=== PATIENT | female | born 1950 | race Caucasian/White ===

== ENCOUNTER 2020-01-17 14:49 | Outpatient (CLI) | payer MEDICARE, OTHER, SELFPAY ==
--- NOTE | 2020-01-17 15:06 | CT_ITS ---
WS: [id number] CT CHEST TECHNIQUE: Noncontrast CT of the chest with coronal and sagittal reformatted images. CLINICAL INFORMATION: SOLITARY PULMONARY NODULE COMPARISON: CT chest December 21, 2018 DLP: 949.[address] scans at [facility] use at least one of these dose optimization techniques: automat ed exposure control; mA and/or kV adjustment per patient size (includes targeted exams where dose is matched to clinical indication); or iterative reconstruction. FINDINGS: Again seen is the noncalcified pulmonary nodule right lower lobe. This appears slightly more dense to day measures approximately 7.1 mm compared to 6.5 mm previous. This is slightly increased in size. Re commend 6 month follow-up. No other suspicious abnormalities. No mediastinal or hilar lymphadenopathy . Vascular calcification including coronary. Left hilar nodes. Both adrenal glands are normal. Splenic granulomas. Stable renal cyst upper pole left kidney. No axillary lymphadenopathy. Hypertrophic henry es thoracic spine. CT/CT chest wo con [id number] IMPRESSION: 1. Slight increase in size and density right lower lobe pulmonary nodule measu ring 7.1 mm today. RECOMMEND 6 MONTH FOLLOW-UP. 2. No other significant interval changes. 3. No mediastinal or hilar lymphadenopathy 4. Stable 12 mm renal cyst upper pole left kidney.
--- NOTE | 2020-01-17 15:07 | XR_ITS ---
WS: [id number] SCREENING DEXA SCAN [facility] CLINICAL INFORMATION: ASYMPTOMATIC MENOPAUSAL STATE COMPARISON: None. FINDINGS: The L1-L4 bone mineral density measures 1.608 g/cm2. This corresponds to a T score score of 3.6 and Z score of 4.4. Left femoral neck bone mineral density measures 1.272 g/cm2. This corresponds to a T score of 2.1 and Z score of 2.9. Right femoral neck bone mineral density measures 1.245 g/cm2. This corresponds to a T score 1.9of and Z score of 2.7. Mean femoral neck bone mineral density measures 1.259 g/cm2. This corresponds to a T score of 2.0 and Z score of 2.8. XR/XR DEXA axial skeleton* [id number] IMPRESSION: Normal bone mineralization. Patient's FRAX calculated 10 year probability for major osteoporotic fracture i s 5.5 % and osteoporotic hip fracture is 0.1%.
== END 2020-01-17 14:50 | disposition home or self-care (01) ==
LOC: RADWPI 14:51
PROVIDERS: Family Provider Nurse Practitioner Family; PCP Nurse Practitioner Family; Visit Provider Nurse Practitioner Family
DX: R91.1 Solitary pulmonary nodule (principal); Z78.0 Asymptomatic menopausal state; Q61.01 Congenital single renal cyst
CPT/HCPCS: 71250; 77080

== ENCOUNTER 2020-07-06 08:32 | Outpatient (CLI) | payer MEDICARE, OTHER, SELFPAY ==
--- NOTE | 2020-07-06 08:40 | CT_ITS ---
WS: [id number] CT CHEST WITHOUT INTRAVENOUS CONTRAST HISTORY: SOLITARY PULMONARY NODULE TECHNIQUE: Contiguous 5 mm axial imaging performed on the thorax. Coronal and sagittal reformats are submitted. All CT scans at [facility] use at least one of these dose optimization techniq ues: automated exposure control; mA and/or kV adjustment per patient size (includes targeted exams wh ere dose is matched to clinical indication); or iterative reconstruction. CONTRAST: None DLP: 954.09 mGycm COMPARISON: 01/17/2020 and 12/21/2018, CT abdomen 06/11/2018 Lungs and central airway: 6 mm noncalcified round nodule in the periphery RIGHT lower lobe is stable since 06/11/2018. There is an additional 3 mm nodule in the RIGHT upper lobe which is stable. No enlar ging or new pulmonary nodules. No pneumonia. Pleura: Normal. No pleural effusion. Heart and pericardium: Normal size heart with no pericardial effusion. Mediastinum and davion: No mediastinum or hilar adenopathy. Vessels: Mild atherosclerosis aorta with no aneurysm. Normal size pulmonary artery. Chest wall and lower neck: No soft tissue masses. Upper abdomen: Moderate hepatomegaly and diffuse hepatic steatosis with no bile duct dilatation. Sple jono and hepatic granulomatous. Low-attenuation lesion in the upper pole LEFT kidney is again identifi ed and no interval change. No adrenal mass. Osseous structures: Moderate thoracic spondylosis. CT/CT chest wo con [id number] IMPRESSION: 1. Long-term stability RIGHT lower lobe 6 mm noncalcified pulmonary nodule. No additional follow-up necessary. 2. Mild atherosclerosis aorta. 3. Hepatic steatosis and hepatomegaly.
== END 2020-07-06 08:33 | disposition home or self-care (01) ==
LOC: RADWPI 08:39
PROVIDERS: PCP Nurse Practitioner Family; Visit Provider Nurse Practitioner Family
DX: R91.1 Solitary pulmonary nodule (principal); I70.0 Atherosclerosis of aorta; K76.0 Fatty (change of) liver, not elsewhere classified; R16.0 Hepatomegaly, not elsewhere classified
CPT/HCPCS: 71250

== ENCOUNTER 2021-03-05 10:56 | Outpatient (CLI) | payer MEDICARE, OTHER, SELFPAY ==
--- NOTE | 2021-03-05 11:02 | XR_ITS ---
WS: [id number] Thoracic spine, AP and lateral views, 03/05/2021 Clinical Data: TYPE 2 DIABETES MELLITUS, CHRONIC KIDNEY DISEASE Comparison: None. Findings: No compression fractures are seen. The disc heights are normal. There is moderate osteoarthritic spurring of all the thoracic vertebral bodies. The paravertebral reg ions are normal. XR/XR thoracic spine 2V [id number] Impression: Moderate osteoarthritis of the thoracic vertebral bodies.
== END 2021-03-05 10:57 | disposition home or self-care (01) ==
PROVIDERS: PCP Nurse Practitioner Family; Visit Provider Nurse Practitioner Family
DX: I10 Essential (primary) hypertension (principal); E11.65 Type 2 diabetes mellitus with hyperglycemia; E11.22 Type 2 diabetes mellitus with diabetic chronic kidney disease; N18.30 Chronic kidney disease, stage 3 unspecified; M47.814 Spondylosis without myelopathy or radiculopathy, thoracic region
CPT/HCPCS: 72070

== ENCOUNTER 2021-06-28 14:44 | Outpatient (CLI) | payer MEDICARE, OTHER, SELFPAY ==
--- NOTE | 2021-06-28 14:49 | MM_ITS ---
WS: [id number] BILATERAL SCREENING DIGITAL MAMMOGRAM WITH CAD HISTORY: SCREENING COMPARISON: 05/30/2019 and 10/31/2017 Bilateral CC and MLO views submitted. Computer aided detection analyzed. Breast composition: There are scattered areas of fibroglandular density. No suspicious masses, microc alcifications or architectural distortion. Benign calcifications in each breast. MM/[place] [id number] IMPRESSION: BI-RADS: 2-Benign FOLLOW UP: 1 Year Follow-up
== END 2021-06-28 14:45 | disposition home or self-care (01) ==
PROVIDERS: PCP Nurse Practitioner Family; Visit Provider Nurse Practitioner Family
DX: Z12.31 Encounter for screening mammogram for malignant neoplasm of breast (principal)
CPT/HCPCS: 77067

== ENCOUNTER 2021-11-04 07:44 | Outpatient (CLI) | payer MEDICARE, OTHER, SELFPAY ==
--- NOTE | 2021-11-04 07:57 | US_ITS ---
WS: [id number] RIGHT UPPER QUADRANT ULTRASOUND HISTORY: GENERALIZED ABD PAIN COMPARISON: None available. Liver: 17.8 cm in length. Liver is top normal size. Very mild coarse echotexture. No mass or bile murphy t dilatation. Portal Vein: Normal hepatopetal flow with monophasic waveform. Gallbladder: Status post cholecystectomy. CBD: 0.6 cm, long portion of common bile duct is identified but there is no stone or dilatation. Pancreas: Normal size and echogenicity. Right kidney: 10.4 cm in length. Normal size and echogenicity. No hydronephrosis or mass. Aorta and IVC: Unremarkable abdominal aorta and IVC. No ascites. US/US abdomen limited [id number] IMPRESSION: 1. Prior cholecystectomy. 2. Very minimal coarse echotexture throughout the liver. May represent early h epatocellular disease. At this time portal triads are still apparent and there is no mass or bile duct dilatation. Surface of the liver is normal.
--- NOTE | 2021-11-04 07:57 | CT_ITS ---
WS: [id number] CT CHEST WITHOUT INTRAVENOUS CONTRAST HISTORY: PERSONAL HX OF NICOTINE DEPENDENCE/SOLITARY PULMONARY NODULE TECHNIQUE: Contiguous 5 mm axial imaging performed on the thorax. Coronal and sagittal reformats are submitted. All CT scans at [employer] use at least one of these dose optimization techniques: automated exposure control; mA and/or kV adjustment per patient size (includes targeted exams where dose is matched to clinical indication); or iterative reconstruction. CONTRAST: None DLP: 756.41 mGy.cm COMPARISON: 07/06/2020, 06/11/2018 and 12/21/2018 Lungs and central airway: Previously described 6 mm RIGHT lower lobe pulmonary nodule is reidentified . There is an additional stable 2 mm nodule in the RIGHT lower lobe. Pleura: Normal. No pleural effusion. Heart and pericardium: Normal size heart with no pericardial effusion. Mediastinum and davion: Calcified LEFT hilar lymph nodes. Vessels: Mild atherosclerosis aorta. No aneurysm. Normal size pulmonary artery. Chest wall and lower neck: No soft tissue masses. Upper abdomen: Mildly enlarged liver. Splenic and hepatic granulomata. No hiatal hernia. Adrenal glan ds are normal. Visualized pancreas is normal. Osseous structures: Moderate thoracic spondylosis. CT/CT chest wo con [id number] IMPRESSION: 1. Long-term stability of RIGHT lower lobe pulmonary nodules. No additional fo llow-up necessary. 2. Mild atherosclerosis aorta.
== END 2021-11-04 07:45 | disposition home or self-care (01) ==
LOC: RAD 07:48
PROVIDERS: PCP Nurse Practitioner Family; Visit Provider Nurse Practitioner Family
DX: R79.89 Other specified abnormal findings of blood chemistry (principal); R10.84 Generalized abdominal pain; R91.1 Solitary pulmonary nodule; Z87.891 Personal history of nicotine dependence; I70.0 Atherosclerosis of aorta; Z90.49 Acquired absence of other specified parts of digestive tract
CPT/HCPCS: 71250; 76705

== ENCOUNTER → 2022-05-03 10:03 | Outpatient (BNVA) | payer MEDICARE, OTHER, SELFPAY | PROVIDERS: PCP Nurse Practitioner Family; Visit Provider Podiatrist Foot & Ankle Surgery | DX: E11.21 Type 2 diabetes mellitus with diabetic nephropathy (principal) | CPT/HCPCS: 99203; 99204 ==

== ENCOUNTER 2022-06-09 10:44 | Emergency (ER) | payer MEDICARE, OTHER, SELFPAY ==
[2022-06-09 11:20] VITALS: BP 150/79; PULSE 81; RESP 16; TEMP 36.6; O2SAT 95; BMI 31.6
--- NOTE | 2022-06-09 14:00 | ECG_ITS ---
[facility] Test Date: 2022-06-09 Pat Name: Nel Marie Department: Room: Gender: Female [employer]: : 1950 Requested By: Naeem Mera Order Number: [id number] Harmon MD: Odilia Armijo M.D. Measurements Intervals [place] Rate: 75 P: 80 ME: 192 QRS: -1 QRSD: 88 T: 57 QT: 405 QTc: 453 Interpretive Statements SINUS RHYTHM Compared to ECG 04/05/2017 12:24:59 First degree AV block no longer present Electronically Signed On 06-09-2022 17:07:51 CDT by Odilia Armijo M.D. [id number]
[2022-06-09 14:28] LABS: Basophils # 0.1 10^3/uL (0.0-0.1); Basophils % 0.9 %; Eosinophils # 0.4 10^3/uL (0.0-0.8); Eosinophils % 3.2 %; Hematocrit 43.8 % (37.0-47.0); Hemoglobin 14.3 g/dL (11.5-15.3); Lymphocytes # 1.9 10^3/uL (0.8-4.8); Lymphocytes % 16.4 %; Mean Corpuscular HGB Conc 32.6 g/dL (30.0-36.0); Mean Corpuscular Hemoglobin 29.1 pg (28.0-34.0); Mean Corpuscular Volume 89.2 fl (81-99); Mean Platelet Volume 9.3 fL (7.4-10.4); Monocytes # 0.6 10^3/uL (0.2-0.9); Monocytes % 4.8 %; Neutrophils # 8.63 10^3/uL (1.8-7.7); Neutrophils % 74.4 %; Nucleated Red Blood Cells % 0 %; Platelet Count 388 10^3/cmm (130-400); Red Blood Count 4.91 10^6/uL (4.1-5.3); Red Cell Distribution Width 13.3 % (12.1-15.1); White Blood Count 11.6 10^3/uL (4.0-10.0)
--- NOTE | 2022-06-09 14:43 | PC.NURSE ---
pt reprots LUQ abdominal pain for 2 months. Has a f/u appointment with PCP on 06/22/22. was told it was shingles without a rash, but pt does not agree with that due to never having chicken pox. Pt reports intermittent diarrhea. denies nausea, vomiting, fevers, . pt alert and oriented, skin pink/warm/dry. lung sounds clear bilat. bowel sounds present. visitor at bedside. call light within reach.
[2022-06-09 14:45] LABS: Alanine Aminotransferase 24 U/L (0-33); Albumin Level 4.3 g/dL (3.5-5.2); Alkaline Phosphatase 111 U/L (35-105); Anion Gap 17.6 (5-19); Aspartate Amino Transferase 16 U/L (0-32); Blood Urea Nitrogen 12 mg/dL (8-23); Carbon Dioxide 27 mmol/L (22-29); Chloride 95 mmol/L (98-107); Globulin 3.5 g/dL (1.3-4.6); Glucose 110 mg/dL (65-115); Lipase 20 U/L (13-60); Osmolality Calculated 282 mOsm/kg (285-295); Potassium 3.6 mmol/L (3.5-5.1); Sodium 136 mmol/L (136-145); Total Bilirubin 0.6 mg/dL (0.15-1.2); Total Protein 7.8 g/dL (6.6-8.7)
--- NOTE | 2022-06-09 14:46 | W.ED.ABDPA2 ---
HPI - Abdominal Pain General: Chief Complaint: Abdominal Pain Stated Complaint: Abd pains Time Seen by Provider: 06/09/22 14:19 Source: patient Mode of arrival: ambulatory History of Present Illness: 71-year-old female presents emergency room planing abdominal pain left upper quadrant for the last 2 months. She had seen a primary care provider and was told she had internal shingles . She states she has had persistent discomfort there was no further testing. She denies any fever sweats chills no nausea vomiting or diarrhea. No dysuria urgency or frequency no hematuria no vomiting or diarrhea. Patient previously has had appendectomy cholecystectomy and multiple gynecologic procedures. She has not had any difficulty with bowel or bladder she is not any difficulty with p.o. intake. MD elicited complaint: abdominal pain Onset (ago): month(s) (2) Pain Consistency: intermittent Location: LUQ Severity: moderate Quality: cramping Radiation: none Migration to: no migration Exacerbating factors: nothing Relieving factors: nothing Associated Symptoms: Reports GI cramping; Denies anorexia, belching, bloating, change in bowel habits, change in stool character, chills, coffee ground emesis, constipation, diarrhea, dyspepsia, dysuria, excessive flatus, fever(s), heartburn, hematochezia, hematuria, hematemesis, fecal incontinence, loose stools, melena, nausea, poor appetite, syncope and vomiting Review of Systems Const: Denies: fever(s), chills, fatigue or malaise ENMT: Denies: throat pain, ear or mastoid pain, nasal discharge or nasal congestion Card: Denies: chest pain, palpitations or syncope Resp: Denies: dyspnea, productive cough or non-productive cough GI: Reports: GI cramping; Denies: abdominal pain, nausea, vomiting, hematemesis, coffee ground emesis, heartburn, diarrhea, constipation, bloating, belching, excessive flatus, fecal incontinence, change in bowel habits, change in stool character, hematochezia or melena : Denies: flank pain, difficulty voiding, dysuria, urinary frequency, urinary urgency or hematuria Skin/Breast: Denies: rash or pruritus PFSH ED PFSH: Medical History Combined hyperlipidemia Glaucoma (increased eye pressure) Hypertension Low back pain Renal cyst, left Type 2 diabetes mellitus with diabetic nephropathy Surgical History H/O: hysterectomy History of appendectomy History of cholecystectomy Hx of exploratory laparotomy x5 Family History Other CAD (coronary artery disease) Cancer Diabetes Hyperlipidemia Hypertension Lung disease Social History Smoking and tobacco status: former smoker Quit status (tobacco): has quit using tobacco Year quit tobacco: 30 years ago Alcohol intake: never Physical Exam Const: GENERAL APPEARANCE: cooperative and comfortable ORIENTATION/CONSCIOUSNESS: Yes awake, Yes oriented to person, Yes oriented to place and Yes oriented to time HENMT: COMMON NORMALS: normocephalic, atraumatic and hearing grossly normal bilaterally HEAD & SCALP: normocephalic and atraumatic Chest: OTHER: Tenderness palpating along with costochondral angle and left lower ribs Resp: COMMON NORMALS: normal respiratory effort, No retractions, No use of accessory muscles and clear to auscultation bilaterally AUSCULTATION: clear to auscultation bilaterally Cardio: COMMON NORMALS: regular rate, regular rhythm and No murmurs present (Cardio) RATE: regular rate RHYTHM: regular rhythm GI: COMMON NORMALS: Soft to palpation and No hepatosplenomegaly present AUSCULTATION: Yes normoactive bowel sounds PALPATION: Yes Soft to palpation, No Tenderness to palpation present (GI), No Guarding due to palpation present (GI) and Yes No hepatosplenomegaly present Extremity: COMMON NORMALS: normal to inspection, capillary refill normal, no clubbing, cyanosis or edema, no calf tenderness and no pedal edema Neuro: SENSORIUM/ORIENTATION: Yes oriented to person, Yes oriented to place and Yes oriented to time Skin: COMMON NORMALS: no rashes or lesions noted GENERAL SKIN EXAM: no rashes or lesions noted Course Vital Signs: Vital signs: Vital Signs Temperature 97.8 F 06/09/22 11:20 Pulse Rate 83 06/09/22 17:56 Respiratory Rate 16 06/09/22 11:20 Blood Pressure 140/86 06/09/22 17:56 Pulse Oximetry 96 06/09/22 17:56 Oxygen Delivery Me thod 06/09/22 11:20 MDM - Abdominal Pain Medical Decision Making Labs, EKG And imaging reviewed. There is no sign of pneumonia congestive heart failure. Clinically there is no evidence of pulmonary embolism.No evidence of acute fracture. Treat for soft tissue injury follow-up as needed Medical Records I reviewed the patient's medical records. Lab Data I reviewed the patient's lab results. : 06/09/22 14:20 06/09/22 14:20 Labs/Radiology: Radiology Impressions Chest X-Ray 06/09/22 14:57 IMPRESSION: No acute findings. Ribs X-Ray 06/09/22 15:25 IMPRESSION: Moderate acromioclavicular joint and glenohumeral joint osteoarthritis. Laboratory Results WBC 11.6 10^3/uL (4.0-10.0) H 06/09/22 14:20 RBC 4.91 10^6/uL (4.1-5.3) 06/09/22 14:20 Hgb 14.3 g/dL (11.5-15.3) 06/09/22 14:20 Hct 43.8 % (37.0-47.0) 06/09/22 14:20 MCV 89.2 fl (81-99) 06/09/22 14:20 MCH 29.1 pg (28.0-34.0) 06/09/22 14:20 MCHC 32.6 g/dL (30.0-36.0) 06/09/22 14:20 RDW 13.3 % (12.1-15.1) 06/09/22 14:20 Plt Count 388 10^3/cmm (130-400) 06/09/22 14:20 MPV 9.3 fL (7.4-10.4) 06/09/22 14:20 Neut % (Auto) 74.4 % 06/09/22 14:20 Lymph % (Auto) 16.4 % 06/09/22 14:20 Reeves % (Auto) 4.8 % 06/09/22 14:20 Eos % (Auto) 3.2 % 06/09/22 14:20 Baso % (Auto) 0.9 % 06/09/22 14:20 Neut # (Auto) 8.63 10^3/uL (1.8-7.7) H 06/09/22 14:20 Lymph # (Auto) 1.9 10^3/uL (0.8-4.8) 06/09/22 14:20 Reeves # (Auto) 0.6 10^3/uL (0.2-0.9) 06/09/22 14:20 Eos # (Auto) 0.4 10^3/uL (0.0-0.8) 06/09/22 14:20 Baso # (Auto) 0.1 10^3/uL (0.0-0.1) 06/09/22 14:20 Nucleated RBC % (auto) 0 % 06/09/22 14:20 Nucleated RBCs # 0.0 /100WBC 06/09/22 14:20 Sodium 136 mmol/L (136-145) 06/09/22 14:20 Potassium 3.6 mmol/L (3.5-5.1) 06/09/22 14:20 Chloride 95 mmol/L (98-107) L 06/09/22 14:20 Carbon Dioxide 27 mmol/L (22-29) 06/09/22 14:20 Anion Gap 17.6 (5-19) 06/09/22 14:20 BUN 12 mg/dL (8-23) 06/09/22 14:20 Creatinine 0.8 mg/dL (0.5-0.9) 06/09/22 14:20 GFR Calculation Not Reportable 06/09/22 14:20 Glucose 110 mg/dL (65-115) 06/09/22 14:20 Calculated Osmolality 282 mOsm/kg (285-295) L 06/09/22 14:20 Calcium 10.0 mg/dL (8.5-10.5) 06/09/22 14:20 Total Bilirubin 0.6 mg/dL (0.15-1.2) 06/09/22 14:20 AST 16 U/L (0-32) 06/09/22 14:20 ALT 24 U/L (0-33) 06/09/22 14:20 Alkaline Phosphatase 111 U/L (35-105) H 06/09/22 14:20 Total Protein 7.8 g/dL (6.6-8.7) 06/09/22 14:20 Albumin 4.3 g/dL (3.5-5.2) 06/09/22 14:20 Globulin 3.5 g/dL (1.3-4.6) 06/09/22 14:20 Lipase 20 U/L (13-60) 06/09/22 14:20 Urine Color Yellow (Yellow) 06/09/22 15:44 Urine Appearance Clear (CLEAR) 06/09/22 15:44 Urine pH 7 (5-7) 06/09/22 15:44 Ur Specific [place] 1.005 (1.005-1.030) 06/09/22 15:44 Urine Protein Neg (Negative) 06/09/22 15:44 Urine Glucose (UA) Norm (Normal) 06/09/22 15:44 Urine Ketones Negative (Negative) 06/09/22 15:44 Urine Blood Neg (Negative) 06/09/22 15:44 Urine Nitrate Negative (Negative) 06/09/22 15:44 Urine Bilirubin Neg (Negative) 06/09/22 15:44 Urine Urobilinogen 1 mg/dL (Negative) H 06/09/22 15:44 Ur Leukocyte Esterase Trace (Negative) H 06/09/22 15:44 Urine RBC None /hpf (0-2) 06/09/22 15:44 Urine WBC None /hpf (0-5) 06/09/22 15:44 Ur Squamous Epith Cells 0-4 /hpf (0-5) H 06/09/22 15:44 Amorphous Sediment Not Reportable 06/09/22 15:44 Urine Bacteria None /hpf (NONE) 06/09/22 15:44 Discharge Plan Discharge Patient Disposition: Home Clinical Impression: Rib pain on left side Condition: Stable Prescriptions: New diclofenac sodium 75 mg tablet,delayed release (DR/EC) 75 mg PO Q12H PRN (Reason: pain) Qty: 20 0RF Discontinued naproxen sodium [Aleve] 220 mg Tablet 440 mg PO Q12H PRN (Reason: Pain) No Action timolol 0.5 % drops 1 drop ophthalmic (eye) BID Travatan Z 0.004 % drops 1 drop ophthalmic (eye) BEDTIME Levemir FlexTouch U-100 Insuln 100 unit/mL (3 mL) insulin pen 20 unit SUBCUT BID Trulicity 4.5 mg/0.5 mL pen injector See Rx Instructions .ROUTE .COMPLEX Rx Instructions: DIRECTED ONCE A WEEK atorvastatin 40 mg tablet 40 mg PO QAM triamterene-hydrochlorothiazid 37.5-25 mg capsule See Rx Instructions .ROUTE .COMPLEX Rx Instructions: TAKE ONE TAB PO ONCE A DAY ONE DAY THEN ALTERNATE AND TAKE 2 TABS DAILY THE NEXT DAY amlodipine 10 mg tablet 10 mg PO QAM ezetimibe 10 mg tablet 10 mg PO QAM Janumet XR 100-1,000 mg tablet, ER multiphase 24 hr 1 tab PO QAM duloxetine 60 mg capsule, delayed rel sprinkle 60 mg PO QAM Discharge Orders: Discharge ED (Routine); Ordered 06/09/22 Ordered By: Lj Horne Referrals: Chelsi Herrera, NATURALIST [Primary Care Provider] - Discharge Diet: Usual diet Discharge Activity: Resume usual activity Patient Instructions: Opioid Safety, Pain Management Coding Level of Care Code ED Process Artist for Nasir Wallace Exam Detailed
--- NOTE | 2022-06-09 14:57 | XRR_ITS ---
PROCEDURE INFORMATION: Exam: XR Chest Exam date and time: 06/09/2022 3:00 PM Age: 71 years old Clinical indication: Cough and dyspnea; Additional info: Dyspnea/cough TECHNIQUE: Imaging protocol: Radiologic exam of the chest. Views: 1 view. COMPARISON: CT chest con [id number] 11/04/2021 8:29 AM FINDINGS: Lungs: Unremarkable. No consolidation. Pleural spaces: Unremarkable. No pleural effusion. No pneumothorax. Heart/Mediastinum: Unremarkable. No cardiomegaly. Bones/joints: Unremarkable. XR/XR chest 1V portable [id number] IMPRESSION: No acute findings.
--- NOTE | 2022-06-09 15:25 | XRR_ITS ---
PROCEDURE INFORMATION: Exam: XR Left Ribs Exam date and time: 06/09/2022 3:35 PM Age: 71 years old Clinical indication: Other: Lt sided; Patient HX: Abdominal pain left upper quadrant for the last 2 months TECHNIQUE: Imaging protocol: Radiologic exam of the Left ribs. Views: 2 views. COMPARISON: CR XR chest 1V portable [id number] 06/09/2022 3:00 PM FINDINGS: Bones/joints: Moderate acromioclavicular joint and glenohumeral joint osteoarthritis. Soft tissues: Normal. XR/XR ribs LT 2V* [id number] IMPRESSION: Moderate acromioclavicular joint and glenohumeral joint osteoarthritis.
[2022-06-09 16:52] LABS: Specific Gravity, Urine 1.005 (1.005-1.030); Urine Appearance Clear (CLEAR); Urine Color Yellow (Yellow); pH Urine 7 (5-7)
[2022-06-09 16:53] LABS: Add Urine Culture? No; Add Urine Microscopic? YES; Bilirubin Urine Neg (Negative); Blood Urine Neg (Negative); Glucose Urine UA Norm (Normal); Ketones Urine Negative (Negative); Leukocyte Esterase Urine Trace (Negative); Nitrate Urine Negative (Negative); Protein Urine Neg (Negative); Squamous Epithelial Cell Urine 0-4 /hpf (0-5); Urobilinogen Urine 1 mg/dL (Negative)
[2022-06-09 17:56] VITALS: BP 140/86; PULSE 83; O2SAT 96
== END 2022-06-09 17:57 | disposition home or self-care (01) ==
PROVIDERS: Emergency Medicine; Emergency Provider Family Medicine; PCP Nurse Practitioner Family
DX: R07.81 Pleurodynia (principal); I10 Essential (primary) hypertension; E11.21 Type 2 diabetes mellitus with diabetic nephropathy; E78.2 Mixed hyperlipidemia; Z79.4 Long term (current) use of insulin
CPT/HCPCS: 36415; 71045; 71100; 80053; 81001; 83690; 85025; 93005; 99285

== ENCOUNTER → 2023-02-22 12:45 | Outpatient (BNVA) | payer MEDICARE, SELFPAY | PROVIDERS: PCP Nurse Practitioner Family; Referring Provider Nurse Practitioner Family; Visit Provider Specialist | DX: M54.50 Low back pain, unspecified (principal); G89.29 Other chronic pain; E11.21 Type 2 diabetes mellitus with diabetic nephropathy; Z79.4 Long term (current) use of insulin | CPT/HCPCS: 99204 ==

== ENCOUNTER → 2023-04-11 10:13 | Outpatient (BNVA) | payer MEDICARE, SELFPAY | PROVIDERS: PCP Nurse Practitioner Family; Visit Provider Podiatrist Foot & Ankle Surgery | DX: E11.8 Type 2 diabetes mellitus with unspecified complications (principal); E11.21 Type 2 diabetes mellitus with diabetic nephropathy; Z79.4 Long term (current) use of insulin | CPT/HCPCS: 99213 ==

== ENCOUNTER → 2023-07-31 10:46 | Outpatient (BNVA) | payer OTHER, SELFPAY | PROVIDERS: PCP Nurse Practitioner Family; Visit Provider Internal Medicine | DX: E11.21 Type 2 diabetes mellitus with diabetic nephropathy (principal); R53.83 Other fatigue; R41.89 Other symptoms and signs involving cognitive functions and awareness; R70.0 Elevated erythrocyte sedimentation rate | CPT/HCPCS: 36415; 80053; 81001; 82550; 83516; 85025; 85651; 86140; 86160; 86162; 86200; 86235; 86255; 86376; 86431; 86704; 86803; 87340; 99204 ==

== ENCOUNTER → 2023-09-19 08:54 | Outpatient (BNVA) | payer MEDICARE, SELFPAY | PROVIDERS: PCP Nurse Practitioner Family; Visit Provider Internal Medicine | DX: R76.8 Other specified abnormal immunological findings in serum (principal); R53.83 Other fatigue; R41.89 Other symptoms and signs involving cognitive functions and awareness; R70.0 Elevated erythrocyte sedimentation rate; E11.21 Type 2 diabetes mellitus with diabetic nephropathy; M79.89 Other specified soft tissue disorders; N18.9 Chronic kidney disease, unspecified; R82.90 Unspecified abnormal findings in urine | CPT/HCPCS: 99214 ==

== ENCOUNTER → 2023-11-08 09:02 | Outpatient (BNVA) | payer MEDICARE, SELFPAY | PROVIDERS: PCP Nurse Practitioner Family; Referring Provider Internal Medicine; Visit Provider Internal Medicine | DX: E11.21 Type 2 diabetes mellitus with diabetic nephropathy (principal); E78.5 Hyperlipidemia, unspecified; E11.22 Type 2 diabetes mellitus with diabetic chronic kidney disease; N18.30 Chronic kidney disease, stage 3 unspecified; Z79.84 Long term (current) use of oral hypoglycemic drugs; Z79.85 Long-term (current) use of injectable non-insulin antidiabetic drugs | CPT/HCPCS: 36415; 80053; 80061; 82044; 83036; 99204 ==

== ENCOUNTER → 2024-02-14 14:53 | Outpatient (BNVA) | payer MEDICARE, SELFPAY | PROVIDERS: PCP Nurse Practitioner Family; Visit Provider Internal Medicine Rheumatology | DX: Z79.899 Other long term (current) drug therapy (principal); E11.21 Type 2 diabetes mellitus with diabetic nephropathy; M19.041 Primary osteoarthritis, right hand; M06.041 Rheumatoid arthritis without rheumatoid factor, right hand; M06.042 Rheumatoid arthritis without rheumatoid factor, left hand | CPT/HCPCS: 73130; 73630; 99214 ==

== ENCOUNTER → 2024-03-06 14:30 | Outpatient (BNVA) | payer MEDICARE, SELFPAY | PROVIDERS: PCP Nurse Practitioner Family; Visit Provider Specialist | DX: G47.9 Sleep disorder, unspecified (principal); R29.90 Unspecified symptoms and signs involving the nervous system; G89.29 Other chronic pain; E11.21 Type 2 diabetes mellitus with diabetic nephropathy; B02.29 Other postherpetic nervous system involvement; M79.7 Fibromyalgia; G43.711 Chronic migraine without aura, intractable, with status migrainosus; R41.89 Other symptoms and signs involving cognitive functions and awareness; E66.9 Obesity, unspecified; Z68.32 Body mass index [BMI] 32.0-32.9, adult | CPT/HCPCS: 99214; 99215 ==

== ENCOUNTER 2024-03-18 10:14 | Outpatient (CLI) | payer MEDICARE, SELFPAY ==
[2024-03-18 10:46] LABS: Basophils # 0.2 10^3/uL (0.0-0.1); Basophils % 1.4 %; Eosinophils # 0.4 10^3/uL (0.0-0.8); Eosinophils % 3.6 %; Hematocrit 43.2 % (36-47); Lymphocytes % 18.6 %; Mean Corpuscular HGB Conc 33.1 g/dL (30-55); Mean Corpuscular Hemoglobin 29.9 pg (27-33); Mean Corpuscular Volume 90.4 fl (85-98); Mean Platelet Volume 9.9 fL (7.4-10.4); Monocytes # 0.6 10^3/uL (0.2-0.9); Monocytes % 5.3 %; Neutrophils # 7.71 10^3/uL (1.8-7.7); Neutrophils % 70.8 %; Nucleated Red Blood Cells % 0 %; Platelet Count 388 10^3/cmm (157-399); Red Blood Count 4.78 10^6/uL (3.85-5.65); Red Cell Distribution Width 13.2 % (12.1-15.1); White Blood Count 10.88 10^3/uL (3.29-11.43)
[2024-03-18 11:27] LABS: 25 Hydroxy Vitamin D 21 ng/mL (30-100); Alanine Aminotransferase 35 U/L (0-33); Albumin Level 4.1 g/dL (3.5-5.2); Alkaline Phosphatase 99 U/L (35-105); Aspartate Amino Transferase 24 U/L (0-32); C Reactive Protein 7.7 mg/L (0.0-4.9); Globulin 3.5 g/dL (1.3-4.6); Thyroid Stimulating Hormone 2.75 uIU/mL (0.27-4.20); Total Bilirubin 0.2 mg/dL (0.15-1.2); Total Protein 7.6 g/dL (6.6-8.7)
[2024-03-18 11:57] LABS: Free T4 Free Thyroxine 1.29 ng/dL (0.82-1.77)
[2024-03-20 16:20] LABS: Mutated Citrullinated Vimentin <20 U/mL (<20)
== END 2024-03-18 10:15 | disposition home or self-care (01) ==
LOC: LAB 10:15
PROVIDERS: PCP Family Medicine; Visit Provider Internal Medicine Rheumatology
DX: Z79.899 Other long term (current) drug therapy (principal); M06.9 Rheumatoid arthritis, unspecified; E11.21 Type 2 diabetes mellitus with diabetic nephropathy
CPT/HCPCS: 36415; 80076; 82306; 82565; 83520; 84439; 84443; 85025; 86140

== ENCOUNTER → 2024-04-09 10:31 | Outpatient (BNVA) | payer MEDICARE, SELFPAY | PROVIDERS: PCP Family Medicine; Visit Provider Podiatrist Foot & Ankle Surgery | DX: E11.8 Type 2 diabetes mellitus with unspecified complications (principal); E11.21 Type 2 diabetes mellitus with diabetic nephropathy; Z79.84 Long term (current) use of oral hypoglycemic drugs | CPT/HCPCS: 99213 ==

== ENCOUNTER 2024-04-30 11:43 | Outpatient (CLI) | payer MEDICARE, SELFPAY ==
[2024-04-30 13:01] LABS: Alanine Aminotransferase 33 U/L (0-33); Albumin Level 4.1 g/dL (3.5-5.2); Alkaline Phosphatase 98 U/L (35-105); Blood Urea Nitrogen 27 mg/dL (8-23); Calcium 9.5 mg/dL (8.5-10.5); Carbon Dioxide 22 mmol/L (22-29); Chloride 99 mmol/L (98-107); Chol HDL Ratio 9.29 mg/dL (0.0-4.40); Cholesterol 353 mg/dL (0-200); Globulin 3.6 g/dL (1.3-4.6); Glucose 182 mg/dL (65-115); HDL Cholesterol 38 mg/dL (60-100); Osmolality Calculated 292 mOsm/kg (285-295); Sodium 136 mmol/L (136-145); Total Bilirubin 0.3 mg/dL (0.15-1.2); Total Protein 7.7 g/dL (6.6-8.7); Triglycerides 678 mg/dL (0-150)
[2024-04-30 13:05] LABS: Creatinine Urine, Random 184 mg/dL (28-217); Microalbum Creatinine Ratio Ur 22 mg/dL (0-20); Microalbumin Random Urine 4 ug/dL (0-20)
[2024-04-30 13:06] LABS: Estmated Average Glucose 206; Hemoglobin A1C 8.8 % (4.0-6.0)
[2024-04-30 13:16] LABS: Anion Gap 19.2 (5-19); Aspartate Amino Transferase 27 U/L (0-32); Potassium 4.2 mmol/L (3.5-5.1)
[2024-04-30 14:13] LABS: LDL Cholesterol Direct 230 mg/dL (0-100)
== END 2024-04-30 11:44 | disposition home or self-care (01) ==
LOC: LAB 11:44
PROVIDERS: PCP Family Medicine; Visit Provider Internal Medicine
DX: E11.21 Type 2 diabetes mellitus with diabetic nephropathy (principal); E78.5 Hyperlipidemia, unspecified
CPT/HCPCS: 36415; 80053; 80061; 82044; 83036; 83721

== ENCOUNTER → 2024-05-17 14:16 | Outpatient (BNVA) | payer MEDICARE, SELFPAY | PROVIDERS: PCP Family Medicine; Visit Provider Specialist | DX: G47.9 Sleep disorder, unspecified (principal); G43.711 Chronic migraine without aura, intractable, with status migrainosus; R29.90 Unspecified symptoms and signs involving the nervous system; G89.29 Other chronic pain; E11.21 Type 2 diabetes mellitus with diabetic nephropathy; B02.29 Other postherpetic nervous system involvement; M79.7 Fibromyalgia; R41.89 Other symptoms and signs involving cognitive functions and awareness; E66.9 Obesity, unspecified; Z53.21 Procedure and treatment not carried out due to patient leaving prior to being seen by health care provider; Z68.30 Body mass index [BMI] 30.0-30.9, adult | CPT/HCPCS: G0463 ==

== ENCOUNTER → 2024-06-04 12:37 | Outpatient (BNVA) | payer MEDICARE, SELFPAY | PROVIDERS: PCP Family Medicine; Visit Provider Internal Medicine Rheumatology | DX: M06.041 Rheumatoid arthritis without rheumatoid factor, right hand (principal); M06.042 Rheumatoid arthritis without rheumatoid factor, left hand; Z79.899 Other long term (current) drug therapy; Z71.85 Encounter for immunization safety counseling; R53.83 Other fatigue; M54.50 Low back pain, unspecified; Z11.1 Encounter for screening for respiratory tuberculosis; Z11.59 Encounter for screening for other viral diseases; E11.21 Type 2 diabetes mellitus with diabetic nephropathy; G89.29 Other chronic pain | CPT/HCPCS: 36415; 72040; 72072; 80076; 82550; 83036; 85025; 86140; 99214 ==

== ENCOUNTER → 2024-06-18 14:35 | Outpatient (BNVA) | payer MEDICARE, SELFPAY | PROVIDERS: PCP Family Medicine; Visit Provider Orthopaedic Surgery | DX: M54.50 Low back pain, unspecified (principal); G89.29 Other chronic pain; M54.9 Dorsalgia, unspecified | CPT/HCPCS: 72072; 72110; 99204 ==

== ENCOUNTER 2024-07-18 14:31 | Outpatient (RCR) | payer MEDICARE, SELFPAY | END 2024-08-03 23:59 | disposition home or self-care (01) | LOC: SPT 14:31 | PROVIDERS: Visit Provider Orthopaedic Surgery | DX: M54.50 Low back pain, unspecified (principal); G89.29 Other chronic pain | CPT/HCPCS: 97110; 97161 ==

== ENCOUNTER → 2024-09-30 14:30 | Outpatient (BNVA) | payer MEDICARE, SELFPAY | PROVIDERS: PCP Family Medicine; Visit Provider Internal Medicine Rheumatology | DX: M06.041 Rheumatoid arthritis without rheumatoid factor, right hand (principal); M06.042 Rheumatoid arthritis without rheumatoid factor, left hand; Z79.899 Other long term (current) drug therapy; Z71.85 Encounter for immunization safety counseling | CPT/HCPCS: 36415; 80076; 82565; 82657; 85025; 85651; 86140; 99214 ==

== ENCOUNTER 2024-11-18 13:41 | Outpatient (CLI) | payer MEDICARE, SELFPAY ==
[2024-11-18 14:09] LABS: Basophils # 0.1 10^3/uL (0.0-0.1); Basophils % 1.1 %; Eosinophils # 0.5 10^3/uL (0.0-0.8); Hematocrit 39.9 % (36-47); Lymphocytes # 1.5 10^3/uL (0.8-4.8); Lymphocytes % 16.2 %; Mean Corpuscular HGB Conc 32.1 g/dL (30-55); Mean Corpuscular Hemoglobin 28.6 pg (27-33); Mean Corpuscular Volume 89.3 fl (85-98); Mean Platelet Volume 9.5 fL (7.4-10.4); Monocytes # 0.4 10^3/uL (0.2-0.9); Monocytes % 4.1 %; Neutrophils # 6.58 10^3/uL (1.8-7.7); Neutrophils % 73.3 %; Nucleated Red Blood Cells % 0 %; Platelet Count 330 10^3/cmm (157-399); Red Blood Count 4.47 10^6/uL (3.85-5.65); Red Cell Distribution Width 13.2 % (12.1-15.1); White Blood Count 8.99 10^3/uL (3.29-11.43)
[2024-11-18 14:22] LABS: Erythrocyte Sedimentation Rate 20 mm/hr (0-15)
[2024-11-18 14:31] LABS: Alanine Aminotransferase 8 U/L (0-33); Albumin Level 4.1 g/dL (3.5-5.2); Alkaline Phosphatase 82 U/L (35-105); Aspartate Amino Transferase 12 U/L (0-32); C Reactive Protein 6.8 mg/L (0.0-4.9); Globulin 2.7 g/dL (1.3-4.6); Total Bilirubin 0.2 mg/dL (0.15-1.2); Total Protein 6.8 g/dL (6.6-8.7)
== END 2024-11-18 13:42 | disposition home or self-care (01) ==
PROVIDERS: PCP Family Medicine; Visit Provider Internal Medicine Rheumatology
DX: Z79.899 Other long term (current) drug therapy (principal); M06.041 Rheumatoid arthritis without rheumatoid factor, right hand; M06.042 Rheumatoid arthritis without rheumatoid factor, left hand
CPT/HCPCS: 36415; 80076; 82565; 85025; 85651; 86140

== ENCOUNTER → 2025-01-06 14:50 | Outpatient (BNVA) | payer MEDICARE, SELFPAY | PROVIDERS: PCP Family Medicine; Visit Provider Internal Medicine Rheumatology | DX: M06.041 Rheumatoid arthritis without rheumatoid factor, right hand (principal); M06.042 Rheumatoid arthritis without rheumatoid factor, left hand; Z79.899 Other long term (current) drug therapy; Z71.85 Encounter for immunization safety counseling; M06.00 Rheumatoid arthritis without rheumatoid factor, unspecified site; L98.9 Disorder of the skin and subcutaneous tissue, unspecified | CPT/HCPCS: 99214 ==

== ENCOUNTER → 2025-01-13 15:29 | Outpatient (BNVA) | payer MEDICARE, SELFPAY | PROVIDERS: PCP Family Medicine; Visit Provider Family Medicine | DX: E11.21 Type 2 diabetes mellitus with diabetic nephropathy (principal); K59.00 Constipation, unspecified | CPT/HCPCS: 80048; 83036 ==

== ENCOUNTER → 2025-03-18 14:28 | Outpatient (BNVA) | payer MEDICARE, SELFPAY | PROVIDERS: PCP Family Medicine; Visit Provider Nurse Practitioner Family | DX: L29.89 Other pruritus (principal); L82.1 Other seborrheic keratosis; E55.9 Vitamin D deficiency, unspecified; D22.5 Melanocytic nevi of trunk; L85.3 Xerosis cutis; L81.4 Other melanin hyperpigmentation | CPT/HCPCS: 99204 ==